=== PATIENT | female | born 1960 | race Caucasian/White ===

== ENCOUNTER → 2016-09-23 | Outpatient (CLI) | payer BC | LOC: FIMAGING 08:58 | PROVIDERS: ATTEND Family Medicine | DX: E04.2 Nontoxic multinodular goiter (principal) ==

== ENCOUNTER → 2016-10-05 | Outpatient (CLI) | payer BC ==
[~2016-10-05] MED LIST: LIDOCAINE 1% 300 MG/30 ML SDV ONE
== END ==
LOC: FIMAGING 09:37
PROVIDERS: ATTEND Family Medicine
PROC: 0G9K3ZX Drainage of Thyroid Gland, Percutaneous Approach, Diagnostic (ICD-10-PCS; principal; 2016-10-05)
DX: E04.1 Nontoxic single thyroid nodule (principal)

== ENCOUNTER → 2017-05-02 | Outpatient (CLI) | payer BC, OTHER | LOC: FIMAGING 10:28 | PROVIDERS: ATTEND Family Medicine | DX: R42 Dizziness and giddiness (principal); R00.0 Tachycardia, unspecified; E04.2 Nontoxic multinodular goiter ==

== ENCOUNTER → 2017-07-12 | Outpatient (CLI) | payer BC | LOC: FIMAGING 08:24 | PROVIDERS: ATTEND Family Medicine | DX: K76.0 Fatty (change of) liver, not elsewhere classified (principal) ==

== ENCOUNTER → 2018-05-05 | Outpatient (CLI) | payer BC | LOC: FIMAGING 13:57 | PROVIDERS: ATTEND Family Medicine | DX: Z12.31 Encounter for screening mammogram for malignant neoplasm of breast (principal); Z80.3 Family history of malignant neoplasm of breast ==